=== PATIENT | male | born 1960 | race Caucasian/White ===

== ENCOUNTER 2020-07-18 23:00 | Emergency (ER) | payer OTHER ==
[~2020-07-18] VITALS: Ht 180.3 cm; Wt 74.8 kg
[2020-07-18] MEDS ORDERED: HYDROXYZINE HCL50 MG PO (23:17)
[2020-07-18] MEDS ORDERED: CITALOPRAM HBR20 MG PO (23:46)
[2020-07-18] MEDS ORDERED: CLOTRIMAZOLE (23:47)
[2020-07-18] MEDS ORDERED: LISINOPRIL2.5 MG PO (23:52)
[2020-07-18] MEDS ORDERED: BEVESPI AEROS10.7 GM PO (23:53)
[2020-07-18] MEDS ORDERED: ALPHA LIPOIC A300 MG PO (23:53)
[2020-07-18] MEDS ORDERED: VENTOLIN HFA18 GM INH (23:55)
[2020-07-18] MEDS ORDERED: LIPITOR20 MG PO (23:56)
[2020-07-18] MEDS ORDERED: ASPIRIN81 MG PO (23:56)
[2020-07-18] MEDS ORDERED: NORVASC10 MG PO (23:56)
[2020-07-18] MEDS ORDERED: ZYRTEC10 MG PO (23:57)
[2020-07-18] MEDS ORDERED: CHLORTHALIDONE25 MG PO (23:57)
[2020-07-18] MEDS ORDERED: MELOXICAM15 MG PO (23:58)
[2020-07-18] MEDS ORDERED: GLUCOPHAGE500 MG PO (23:58)
[2020-07-18] MEDS ORDERED: OMEPRAZOLE20 MG PO (23:58)
[2020-07-18] MEDS ORDERED: MONTELUKAST SOD10 MG PO (23:59)
--- NOTE | 2020-07-19 09:15 | EKG ---
[facility] [address] [facility] [place], [place] [address] Signed Normal sinus rhythm Normal ECG No previous ECGs available Confirmed by RODNEY JUAREZ MD ([id number] on 07/19/2020 9:14:54 AM Electronically Signed By: RODNEY JUAREZ MD 07/19/20 0915 PATIENT NAME: LUIS DANIEL GOVEA Electrocardiogram DATE OF : 58 PHYSICIAN: RODNEY JUAREZ MD REPORT #: [id number] REPORT IS CONFIDENTIAL AND NOT TO BE RELEASED WITHOUT AUTHORIZATION
== END 2020-07-19 00:20 | disposition home or self-care (01) ==
LOC: ED 23:00
DX: E11.65 Type 2 diabetes mellitus with hyperglycemia (principal); Z29.9 Encounter for prophylactic measures, unspecified; J44.9 Chronic obstructive pulmonary disease, unspecified; I10 Essential (primary) hypertension; E78.5 Hyperlipidemia, unspecified; K21.9 Gastro-esophageal reflux disease without esophagitis; Z87.891 Personal history of nicotine dependence; Z79.899 Other long term (current) drug therapy; Z79.82 Long term (current) use of aspirin; Z79.84 Long term (current) use of oral hypoglycemic drugs
CPT/HCPCS: 80048; 93005; 93010; 99285-25